=== PATIENT | male | born 1955 | race Caucasian/White ===

== ENCOUNTER 2018-10-20 22:24 | Inpatient (IN) | payer OTHER ==
[2018-10-20 22:50] LABS: PLATELET COUNT 184 10^3/uL (150-400)
[2018-10-20] MEDS ORDERED: ASPIRIN 325 MG TAB PO ONE (22:50)
[2018-10-20] MEDS ORDERED: NITROGLYCERIN 0.4 MG BTL SL ONE ×2 (22:50→23:25)
[2018-10-20] MEDS ORDERED: NS 500 ML IV ONE (22:50)
--- NOTE | 2018-10-20 22:55 | EDPHY ---
H & P Stated Complaint: Pressure in chest and pain in bilat arms started 30min SOUND EDITOR Time Seen by Provider: 10/20/18 22:33 HPI/ROS: HPI The patient presents with chest pain which began at about 9:45 p.m. Tonight while he was seated. Pain started slowly and got progressively worse, has been constant since. He describes it as a tight pressure-like sensation throughout his anterior chest which causes in aching in both of his arms and his teeth. He had the pain twice today earlier though it was milder and improved within 30 min. He had this same pain several months ago when he was taking indomethacin for gout. He stopped taking indomethacin in his pain improved so it was thought to be related to that. He does not have any associated shortness of breath, nausea, vomiting, dizziness , diaphoresis. The pain is not worse with exertion. He does not have any leg swelling. He is not sure or if he always is in atrial fibrillation or just occasionally. He is now followed by [facility]. He had an echocardiogram performed a few weeks ago and he reports that this is normal. He is followed by a workday manager and takes metoprolol, lisinopril, Pradaxa.. REVIEW OF SYSTEMS 10 systems were reviewed and negative with the exception of the elements mentioned in the history of present illness. PMHx: Hypertension, history of atrial fibrillation, gout, umbilical hernia Soc Hx: Here with his PHYSICAL General Appearance: Alert, no distress Eyes: Pupils equal and round no pallor or injection ENT, Mouth: Mucous membranes moist Respiratory: There are no retractions, lungs are clear to auscultation Cardiovascular: Irregularly irregular Gastrointestinal: Abdomen is soft and non-tender, no masses, bowel sounds normal Neurological: A&O, moves all extremities Skin: Warm and dry, no rashes Musculoskeletal: Neck is supple non tender Extremities: symmetrical, full range of motion Psychiatric: Patient is oriented X 3, there is no agitation Source: Patient Exam Limitations: No limitations - Personal History Current Tetanus/Diphtheria Vaccine: Yes Current Tetanus Diphtheria and Acellular Pertussis (TDAP): Yes - Medical/Surgical History Hx Asthma: No Hx Chronic Respiratory Disease: No Hx Diabetes: No Hx Cardiac Disease: Yes Hx Renal Disease: No Hx Cirrhosis: No Hx Alcoholism: No Hx HIV/AIDS: No Hx Splenectomy or Spleen Trauma: No Other PMH: CHF, hernia, afib - Social History Smoking Status: Never smoked Constitutional: Initial Vital Signs Temperature (C) 36.6 C 10/20/18 22:25 Heart Rate 84 10/20/18 22:25 Respiratory Rate 18 10/20/18 22:25 Blood Pressure 145/105 H 10/20/18 22:25 O2 Sat (%) 98 10/20/18 22:25 O2 Delivery Mode Room Air O2 (L/minute) 2 Allergies/Adverse Reactions: HAD PROBLEMS WITH STATINS Allergy (Uncoded 10/21/18 02:21) Home Medications: Medication Instructions Recorded B-12 10/20/18 Lisinopril 10/20/18 Proactin 10/20/18 Metoprolol Succinate 10/21/18 Pradaxa 10/21/18 Medical Decision Making - Diagnostics EKG Interpretation: EKG: Complete interpretation has been separately recorded in the [facility] archive. Summary impression: Atrial fibrillation with rate from 70-120, some bigeminy is present EKG 2. Complete interpretation has been separately recorded in the [facility] archive. Summary impression: Sub 1mm ST segment depressions in V2 and V3 Imaging Results: Imaging Impressions Chest X-Ray 10/20/18 22:37 Impression: Peribronchial thickening which can be seen with airways disease/ bronchitis or mild fluid overload. Imaging: I viewed and interpreted images myself Differential Diagnosis: This is a 62-year-old man with history of hypertension, atrial fibrillation who presents from home with 1 hr of chest pain which is tight and pressure-like throughout his chest, radiates to his arms, occurred at rest and does have any associated symptoms. He has no prior history of CAD though does not report any provocative testing recently. He did have an echo performed several weeks ago and reports that it was normal. Here, he is slightly hypertensive and mildly uncomfortable appearing. Plan for EKG, chest x-ray, troponin, pain control starting with aspirin and nitroglycerin. HEART score is 4. Pain improved with nitroglycerin and aspirin. Repeat EKG shows less PVCs and I do not see any ST segment change. 12:00 a.m.- Patient's pain is slightly worse here in the emergency department. He will need to be admitted and given his ongoing chest pain, I think he should stay here as he is not stable. I spoke with Dr. Vizcarra of [facility]. He is in agreement with admission to our hospital. 12:39 a.m.- I consulted with Dr. Gary, on-call workday manager, we reviewed the patient's presentation and EKG, he recommends heparin drip for the patient and pain control. We will keep the patient NPO and hold any Pradaxa. EKG showing small ST seg depressions in 2 leads, less than 1 mm. Patient's pain became slightly worse. Thus, repeat EKG and troponin were obtained. Repeat troponin is positive at 0.12. EKG was unchanged. Pt with presumed NSTEMI. We will start the patient on transdermal nitroglycerin and continue heparin, I have also ordered a dose of morphine. I have consulted with the hospitalist Dr. Downey and we will admit the patient to the PCU. 1:03 a.m.- Patient's pain not improved after receiving treatments with transdermal nitroglycerin, heparin. He has ongoing pain. I reconsulted Dr. Gary who will come into the emergency department to see the patient. 2:02 a.m.- Dr. Gary came to the emergency department to assess the patient. He plans to take him directly to the research laboratory technician. We have activated the research laboratory technician. Dr. Mckeon to take patient. Critical Care Time: CRITICAL CARE Critical care time spent by me, Dr. Zambrano, exclusively with this patient was 60 minutes, exclusive of PA time and exclusive of procedures. The organ system at risk was cardiac and I gave IV fluids, multiple medications for pain and blood pressure control, emergently transfer the patient to the cardiac catheterization lab to prevent worsening of the patients condition. - Data Points Laboratory Results: Laboratory Results 10/20/18 22:40 10/20/18 22:40 10/20/18 10/20/18 10/20/18 23:59 22:45 22:40 WBC RBC Hgb Hct MCV MCH MCHC RDW Plt Count MPV Neut % (Auto) Lymph % (Auto) [place] % (Auto) Eos % (Auto) Baso % (Auto) Nucleat RBC Rel Count Absolute Neuts (auto) Absolute Lymphs (auto) Absolute Monos (auto) Absolute Eos (auto) Absolute Basos (auto) Absolute Nucleated RBC Immature Gran % Immature Gran # PT 14.7 SEC SEC (12.0-15.0) INR 1.13 (0.83-1.16) APTT 37.0 SEC SEC (23.0-38.0) Sodium Potassium Chloride Carbon Dioxide Anion Gap BUN Creatinine Estimated GFR Glucose Calcium POC Troponin I 0.12 ng/mL H ng/mL 0.05 ng/mL ng/mL (0.00-0.08) (0.00-0.08) NT-Pro-B Natriuret Pep 10/20/18 10/20/18 22:40 22:40 WBC 9.47 10^3/uL 10^3/uL (3.80-9.50) RBC 5.76 10^6/uL 10^6/uL (4.40-6.38) Hgb 18.6 g/dL H g/dL (13.7-17.5) Hct 51.9 % H % (40.0-51.0) MCV 90.1 fL fL (81.5-99.8) MCH 32.3 pg pg (27.9-34.1) MCHC 35.8 g/dL g/dL (32.4-36.7) RDW 13.2 % % (11.5-15.2) Plt Count 184 10^3/uL 10^3/uL (150-400) MPV 10.0 fL fL (8.7-11.7) Neut % (Auto) 47.8 % % (39.3-74.2) Lymph % (Auto) 34.0 % % (15.0-45.0) [place] % (Auto) 12.0 % % (4.5-13.0) Eos % (Auto) 3.4 % % (0.6-7.6) Baso % (Auto) 1.5 % % (0.3-1.7) Nucleat RBC Rel Count 0.0 % % (0.0-0.2) Absolute Neuts (auto) 4.53 10^3/uL 10^3/uL (1.70-6.50) Absolute Lymphs (auto) 3.22 10^3/uL H 10^3/uL (1.00-3.00) Absolute Monos (auto) 1.14 10^3/uL H 10^3/uL (0.30-0.80) Absolute Eos (auto) 0.32 10^3/uL 10^3/uL (0.03-0.40) Absolute Basos (auto) 0.14 10^3/uL H 10^3/uL (0.02-0.10) Absolute Nucleated RBC 0.00 10^3/uL 10^3/uL (0-0.01) Immature Gran % 1.3 % H % (0.0-1.1) Immature Gran # 0.12 10^3/uL H 10^3/uL (0.00-0.10) PT INR APTT Sodium 138 mEq/L mEq/L (135-145) Potassium 4.1 mEq/L mEq/L (3.5-5.2) Chloride 106 mEq/L mEq/L (97-110) Carbon Dioxide 19 mEq/l L mEq/l (22-31) Anion Gap 13 mEq/L mEq/L (6-14) BUN 18 mg/dL mg/dL (7-23) Creatinine 1.1 mg/dL mg/dL (0.7-1.3) Estimated GFR > 60 Glucose 126 mg/dL H mg/dL (70-100) Calcium 9.4 mg/dL mg/dL (8.5-10.4) POC Troponin I NT-Pro-B Natriuret Pep 1260 pg/mL H pg/mL (0-125) Medications Given: Heparin Sodium (Porcine) (Heparin Injection) 0 unit IVP PRN PRN PRN Reason: re-Boluses required by protcol Stop: 04/19/19 00:05 Last Admin: 10/21/18 00:20 Dose: 4,000 units Heparin Sodium (Porcine) (Heparin 50 Units/Ml (Premix)) 500 mls @ 0 mls/hr IV CONT TARIK; Per Protocol PRN Reason: Protocol Stop: 04/19/19 00:14 Last Admin: 10/21/18 00:23 Dose: 500 mls Sodium Chloride (Ns) 1,000 mls @ 100 mls/hr IV CONT TARIK Stop: 10/21/18 13:59 Last Admin: 10/21/18 04:28 Dose: 1,000 mls Ondansetron HCl (Zofran) 2 - 4 mg IVP Q6HRS PRN PRN Reason: Nausea/Vomiting, Can't Take PO Stop: 04/19/19 03:57 Last Admin: 10/21/18 04:27 Dose: 4 mg Discontinued Medications Aspirin (Aspirin) 325 mg PO EDNOW ONE Stop: 10/20/18 22:51 Last Admin: 10/20/18 22:55 Dose: 325 mg Clopidogrel Bisulfate (Plavix) 600 mg PO ONCE ONE Stop: 10/21/18 03:59 Last Admin: 10/21/18 04:29 Dose: 600 mg Sodium Chloride (Ns) 500 mls @ 1,000 mls/hr IV EDNOW ONE PRN Reason: Protocol Stop: 10/20/18 23:19 Last Admin: 10/20/18 22:55 Dose: 500 mls Morphine Sulfate (Morphine) 4 mg IVP EDNOW ONE Stop: 10/20/18 23:26 Last Admin: 10/20/18 23:30 Dose: 4 mg Morphine Sulfate (Morphine) 4 mg IVP EDNOW ONE Stop: 10/21/18 00:27 Last Admin: 10/21/18 00:28 Dose: 4 mg Morphine Sulfate (Morphine) 2 mg IVP EDNOW ONE Stop: 10/21/18 01:12 Last Admin: 10/21/18 01:16 Dose: 2 mg Nitroglycerin (Nitrostat) 0.4 mg SL EDNOW ONE Stop: 10/20/18 22:51 Last Admin: 10/20/18 22:56 Dose: 0.4 mg Nitroglycerin (Nitrostat) 0.4 mg SL EDNOW ONE Stop: 10/20/18 23:26 Last Admin: 10/20/18 23:29 Dose: 0.4 mg Nitroglycerin (Nitro-Bid 2%) 1 inch TP ONCE ONE Stop: 10/21/18 00:34 Last Admin: 10/21/18 00:35 Dose: 1 inch Nitroglycerin (Nitro-Bid 2%) 1 inch TP EDNOW ONE Stop: 10/21/18 01:01 Last Admin: 10/21/18 04:30 Dose: Not Given Point of Care Test Results: Chemistry 10/20/18 10/20/18 23:59 22:45 POC Troponin I 0.12 ng/mL H ng/mL 0.05 ng/mL ng/mL (0.00-0.08) (0.00-0.08) Departure - Departure Disposition: To OP Cath/Surgery Clinical Impression: Acute coronary syndrome Chest pain Qualifiers: Chest pain type: unspecified Qualified Code(s): R07.9 - Chest pain, unspecified Condition: Critical
[2018-10-21] MEDS ORDERED: HEPARIN 10,000 UNIT/10 ML MDV (1,000 UNIT/ML) IVP PRN (00:06)
--- NOTE | 2018-10-21 00:13 | CPEKG ---
Test Reason : OPEN Blood Pressure : / mmHG Vent. Rate : 113 BPM Atrial Rate : 077 BPM P-R Int : 074 ms QRS Dur : 126 ms QT Int : 356 ms P-R-T Axes : 000 005 002 degrees QTc Int : 489 ms Atrial fibrillation Ventricular bigeminy Left bundle branch block Confirmed by Sai Melendrez ([id number]) on 10/21/2018 12:13:04 AM Referred By: Confirmed By:Sai Melendrez
[2018-10-21] MEDS ORDERED: HEPARIN/DEXTROSE 500 ML IV SCH (00:15)
[2018-10-21] MEDS ORDERED: NITROGLYCERIN 2% 1 GM PACKET ONE (00:31)
[2018-10-21] MEDS ORDERED: NITROGLYCERIN 2% 1 GM PACKET TP ONE ×2 (00:33→01:00)
[2018-10-21] MEDS ORDERED: ACETAMINOPHEN 325 MG TAB PO PRN (01:45)
[2018-10-21] MEDS ORDERED: NITROGLYCERIN 0.4 MG BTL SL PRN (01:45)
--- NOTE | 2018-10-21 02:01 | PDGENHP ---
History and Physical - Chief Complaint chest pain - History of Present Illness 62yo M with atrial fibrillation on pradaxa, obesity, htn, hld presents with chest pressure. Noticed briefly this morning while taking out the trash and subsided after a few minutes. Then began again abruptly around 10pm this evening. Left sided with radiation to both arms. No associated shortness of breath, diaphoresis or nausea. Not positional or pleuritic. Had similar episode about a month ago that occurred at rest and resolved after a half hour. This episode persisted prompting him to come to the ED. His initial ECG showed ST depressions in anterior leads. Initial POC troponin was negative but repeat was slightly elevated at 0.12. His chest pain was not relieved with sublingual nitro , IV morphine, or nitro paste. Cardiology was consulted and he is being taken to the process laboratory specialist by Dr Mckeon for coronary angiography. Of note, he previously saw [facility] back in 2014. He then transferred care to [facility] but hasn't regularly seen a corporate planning manager there. He reports having a TTE about a month ago that was "normal." History Information - Allergies/Home Medication List Allergies/Adverse Reactions: HAD PROBLEMS WITH STATINS Allergy (Uncoded 10/21/18 02:21) Home Medications: B-12 10/20/18 [Last Taken Unknown] Lisinopril 10/20/18 [Last Taken Unknown] Proactin 10/20/18 [Last Taken Unknown] Metoprolol Succinate 10/21/18 [Last Taken Unknown] Pradaxa 10/21/18 [Last Taken Unknown] I have personally reviewed and updated: family history, medical history, social history, surgical history - Past Medical History Additional medical history: chronic atrial fibrillation on OAC, HTN, HLD, obesity, cardiomyopathy now with normalized LVEF (thought 2/2 HTN vs tachy- mediated), mitral regurgitation, gout - Surgical History Reports: no pertinent surgical hx - Social History Smoking Status: Never smoked Alcohol Use: None Drug Use: None Additional social history: , lives with . He is a Yarsanism and would like to avoid blood transfusions Review of Systems Review of Systems: ROS: 10pt was reviewed & negative except for what was stated in HPI & below Physical Exam Physical Exam: Temp Pulse Resp BP Pulse Ox 36.6 C 110 H 16 150/87 H 95 10/20/18 22:25 10/21/18 01:46 10/21/18 01:46 10/21/18 01:46 10/21/18 01:46 O2 (L/minute) 2 Constitutional: obese, uncomfortable Eyes: PERRL, anicteric sclera, EOMI Ears, Nose, Mouth, Throat: moist mucous membranes, hearing normal, ears appear normal, no oral mucosal ulcers Cardiovascular: systolic murmur, irregularly irregular, No JVD, No edema Respiratory: no respiratory distress, no rales or rhonchi, clear to auscultation Gastrointestinal: normoactive bowel sounds, soft, non-tender abdomen, no palpable masses Genitourinary: no bladder fullness, no bladder tenderness Skin: warm, no rashes or abrasions, no fluctuance, no induration, other ( changes in BLE c/w chronic venous stasis), No mottled Musculoskeletal: full muscle strength, no muscle tenderness, normal joint ROM, no joint effusions Neurologic: AAOx3 Psychiatric: interacting appropriately, not anxious, not encephalopathic, thought process linear Lab Data & Imaging Review 10/21/18 05:00 10/21/18 05:00 WBC 9.47 10^3/uL (3.80-9.50) 10/20/18 22:40 RBC 5.76 10^6/uL (4.40-6.38) 10/20/18 22:40 Hgb 18.6 g/dL (13.7-17.5) H 10/20/18 22:40 Hct 51.9 % (40.0-51.0) H 10/20/18 22:40 MCV 90.1 fL (81.5-99.8) 10/20/18 22:40 MCH 32.3 pg (27.9-34.1) 10/20/18 22:40 MCHC 35.8 g/dL (32.4-36.7) 10/20/18 22:40 RDW 13.2 % (11.5-15.2) 10/20/18 22:40 Plt Count 184 10^3/uL (150-400) 10/20/18 22:40 MPV 10.0 fL (8.7-11.7) 10/20/18 22:40 Neut % (Auto) 47.8 % (39.3-74.2) 10/20/18 22:40 Lymph % (Auto) 34.0 % (15.0-45.0) 10/20/18 22:40 [place] % (Auto) 12.0 % (4.5-13.0) 10/20/18 22:40 Eos % (Auto) 3.4 % (0.6-7.6) 10/20/18 22:40 Baso % (Auto) 1.5 % (0.3-1.7) 10/20/18 22:40 Nucleat RBC Rel Count 0.0 % (0.0-0.2) 10/20/18 22:40 Absolute Neuts (auto) 4.53 10^3/uL (1.70-6.50) 10/20/18 22:40 Absolute Lymphs (auto) 3.22 10^3/uL (1.00-3.00) H 10/20/18 22:40 Absolute Monos (auto) 1.14 10^3/uL (0.30-0.80) H 10/20/18 22:40 Absolute Eos (auto) 0.32 10^3/uL (0.03-0.40) 10/20/18 22:40 Absolute Basos (auto) 0.14 10^3/uL (0.02-0.10) H 10/20/18 22:40 Absolute Nucleated RBC 0.00 10^3/uL (0-0.01) 10/20/18 22:40 Immature Gran % 1.3 % (0.0-1.1) H 10/20/18 22:40 Immature Gran # 0.12 10^3/uL (0.00-0.10) H 10/20/18 22:40 Sodium 138 mEq/L (135-145) 10/20/18 22:40 Potassium 4.1 mEq/L (3.5-5.2) 10/20/18 22:40 Chloride 106 mEq/L (97-110) 10/20/18 22:40 Carbon Dioxide 19 mEq/l (22-31) L 10/20/18 22:40 Anion Gap 13 mEq/L (6-14) 10/20/18 22:40 BUN 18 mg/dL (7-23) 10/20/18 22:40 Creatinine 1.1 mg/dL (0.7-1.3) 10/20/18 22:40 Estimated GFR > 60 10/20/18 22:40 Glucose 126 mg/dL (70-100) H 10/20/18 22:40 Calcium 9.4 mg/dL (8.5-10.4) 10/20/18 22:40 POC Troponin I 0.12 ng/mL (0.00-0.08) H 10/20/18 23:59 NT-Pro-B Natriuret Pep 1260 pg/mL (0-125) H 10/20/18 22:40 Visualized and Interpreted Chest x-ray results: Yes Visualized and Interpreted imaging results: Yes Interpretation: CXR: no infiltrate or effusion, normal heart size Visualized and Interpreted EKG results: Yes EKG additional interpertation: ECG: atrial fibrillation with controlled rates, ST depression in V2-V3 (no significant dynamic change) Assessment & Plan Assessment: 62yo M with atrial fibrillation on pradaxa and several cardiovascular risk factors presents with chest pain concerning for ACS. Plan: 1. Chest pain concerning for unstable angina: Pain unrelieved with nitrates, morphine. Troponin minimally elevated, but rising. Abnormal ECG. - Cardiology consulted (d/w Dr Gary), plan for process laboratory specialist tonight for coronary angiography - Continue heparin gtt - Plan for post-cath echo 2. Atrial fibrillation: Rate controlled on admit. [id number] at least 3, on pradaxa. - Resume home metoprolol after cath pending clinical stability and med rec - Holding pradaxa with systemic heparin. He is a Yarsanism and does not want blood products. 3. Polycythemia: Previously normal hematocrit. ? 2/2 MADELINE/chronic hypoxia. Unlikely to be severe enough to lead to thrombosis. - Recheck in AM 4. HTN: Home meds (BB, ACEi) after med rec. 5. HLD: Start on statin if has CAD. 6. H/o cardiomyopathy: [place] to be related to HTN vs afib. LVEF normalized on prior echo. BNP slightly up but appears euvolemic. VTE ppx: therapeutic anticoagulation Code: full Diet: NPO for procedure Dispo: Admit as inpatient
--- NOTE | 2018-10-21 02:08 | SOAPPROG ---
SOAP Progress Note Assessment/Plan: Assessment: Cardiology consult performed and dictated. 62 y/o man Jehovah Witness with chronic afib, HTN, gout and chronic obesity with episode of concerning rest chest pressure a month ago x 30 minutes and today started having 10/10 chest pressure at 10pm. Came to ER and initial ecg in afib with 1.5mm ST depression anterior leads. Despite IV morphine and SL ntg and nitropaste, CP still 8/10 with nausea and shortness of breath. I am concerned he is having NSTEMI with probable obstructive CAD probably in LAD distribution. He declines any blood products and is aware of the risk of bleeding, [place], CVA or with cath. PLAN: 1)proceed with cardiac cath and coronary angiography today and probable PCI 2)reversal agent for Pradaxa available if needed but would not give not in setting of possible coronary artery plaque rupture and thrombus. 3)more recs after cardiac cath done. 10/21/18 02:03 Objective: Vital Signs Temp Pulse Resp BP Pulse Ox 36.6 C 110 H 16 150/87 H 95 10/20/18 22:25 10/21/18 01:46 10/21/18 01:46 10/21/18 01:46 10/21/18 01:46 ICD10 Worksheet Patient Problems: Problems Problem Status Onset Acute coronary syndrome Acute Chest pain Acute
[2018-10-21] MEDS ORDERED: MIDAZOLAM 2 MG/2 ML VIAL ONE (02:37)
[2018-10-21] MEDS ORDERED: fentaNYL 100 MCG/2 ML INJ ONE (02:37)
[2018-10-21] MEDS ORDERED: VERAPAMIL 5 MG/2 ML VIAL ONE (02:37)
[2018-10-21] MEDS ORDERED: HEPARIN 10,000 UNIT/10 ML MDV (1,000 UNIT/ML) ONE (02:37)
[2018-10-21] MEDS ORDERED: LIDOCAINE 1% 300 MG/30 ML SDV ONE (02:37)
[2018-10-21] MEDS ORDERED: IOPAMIDOL (ISOVUE-370) 150 ML BTL IV ONE (02:37)
[2018-10-21 02:42] LABS: INR 1.13 (0.83-1.16); PROTIME(PATIENT) 14.7 SEC (12.0-15.0)
[2018-10-21] MEDS ORDERED: CLOPIDOGREL BISULFATE 75 MG TAB ONE (03:54)
[2018-10-21] MEDS ORDERED: LORazepam 2 MG/ML INJ IVP PRN (03:58)
[2018-10-21] MEDS ORDERED: TEMAZEPAM 15 MG CAP PO PRN (03:58)
[2018-10-21] MEDS ORDERED: ONDANSETRON 4 MG/2 ML VIAL IVP PRN (03:58)
[2018-10-21] MEDS ORDERED: CLOPIDOGREL BISULFATE 75 MG TAB PO ONE (03:58)
[2018-10-21] MEDS ORDERED: ATROPINE SULFATE 1 MG/10 ML SYR IVP PRN (03:58)
[2018-10-21] MEDS ORDERED: NS 1,000 ML IV SCH (04:00)
--- NOTE | 2018-10-21 05:04 | GHP ---
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 He has a history of permanent atrial fibrillation on Pradaxa. Yesterday morning, when taking out the trash, early Sunday morning, he developed chest pressure with radiation into his arms bilaterally in his upper and medial aspect of his arm. The pain subsided and did not return until the evening. He sat down at his desk at his home office and felt intense 10/10 chest discomfort, pressure, and tightness that radiated into his arms bilaterally and was associated with nausea and shortness of breath. It did not change with body position or with inspiration. He ultimately asked his to bring him to the emergency department for further evaluation. At the time of my evaluation, the patient's pain has been partially relieved by intravenous heparin, IV morphine and nitroglycerin paste as well as sublingual nitroglycerin. He states his discomfort is about 2/10 in severity at the present time. ALLERGIES: He is not known to be allergic to medications, but had an adverse reaction to statin medications in the past. HOME MEDICATIONS: Include B12, lisinopril, metoprolol succinate, Pradaxa 150 p.o. b.i.d. Does not know the doses of his other medications. . He also takes p.r.n. prednison for gout PAST MEDICAL HISTORY: Significant for permanent atrial fibrillation on oral anticoagulation therapy. He has hypertension, dyslipidemia, obesity, and a history of a cardiomyopathy in the past, which was likely related to a tachy- induced myopathy versus poorly controlled hypertension. He has had a history of mitral regurgitation, gout, and back pain. He has a history of obstructive sleep apnea which is severe, which is being treated actively with CPAP. SURGICAL HISTORY: Pertinent for prior back surgery. SOCIAL HISTORY: He has never smoked. His alcohol use is pertinent for an occasional beer. He does not use illicit drugs. He is , as I said a partially retired general dentist. He is a Jainism by liz and would like to avoid blood transfusion even if it were performed to save his life. REVIEW OF SYSTEMS: A 10-point review of systems was negative except for as stated in the HPI. PHYSICAL EXAMINATION: GENERAL: The patient appears uncomfortable and obese. He is semi-recumbent on the emergency department stretcher and appears mildly diaphoretic. VITAL SIGNS: His blood pressure is 150/90, pulse ox was 92 on room air, respirations 16 and unlabored. His pulse ranged between 100 and 130 and was irregularly irregular consistent with his diagnosis of atrial fibrillation. Temperature 36.6 Celsius. HEENT: His eyes revealed that his pupils were equal, round and reactive to light with anicteric sclerae. Moist mucous membranes. He appears to be able to hear normally. NECK: Reveals no JVD or carotid bruits. HEART: Reveals normal S1 and S2 with an irregularly irregular murmur. He has an S3 gallop sound and a faint grade 1/6 systolic murmur. LUNGS: He has no respiratory distress. He has no rales or rhonchi. His lungs are clear anteriorly. ABDOMEN: Obese with positive bowel sounds. It is nondistended and nontender. EXTREMITIES: Warm, dry, and well perfused without significant peripheral edema. He has chronic venous stasis changes. LABORATORY STUDIES: Reveal a white count of 9.47, platelets 184, H and H elevated at 18.6 and 51.9. Sodium 138, potassium 4.1, chloride 106, bicarb is 19, BUN and creatinine are 18 and 1.1 with a glucose of 126. His EKG reveals atrial fibrillation with ST-segment depression, which is flat and horizontal in V1 and V2 with an early R-wave pattern which is consistent with a posterior injury pattern. These changes are persistent and different compared to an EKG that was previously obtained which showed atrial fibrillation with a repolarization abnormality. The patient has a history of prior cardiomyopathy and heart failure related to a reduced ejection fraction thought to be secondary to poorly controlled hypertension versus intermittent tachy-induced myopathy from atrial fibrillation. The patient now has an abnormal EKG and a point of care troponin has risen to 0.12 from a negative value initially. His EKG changes are suggestive of a possible left circumflex occlusion posteriorly, and for that reason, he should be taken urgently to the catheterization laboratory for further evaluation and management. His atrial fibrillation is more of a chronic issue and may be contributing to a cardiomyopathy if that is identified at the time of left heart catheterization and subsequent adequate echocardiogram. His hypertension will be controlled with beta blockers and lisinopril and adjusted post catheterization and during this hospital stay. He has polycythemia with a previously normal hematocrit, which may be secondary to his sleep apnea. His dyslipidemia should be started on statin therapy, especially if coronary artery disease is identified and that should be continued and only stopped if he has a true allergic reaction to those medications. I have explained the risks, benefits, and alternatives of cardiac catheterization to the patient including the additional risk of bleeding without the ability to transfuse him in the event that he would have a life-threatening bleeding problem. In spite of those warnings, the patient and his have agreed that the most appropriate course of action is for the patient to go emergently to the catheterization laboratory for definitive angiography and possible stent implantation if that is possible. Copy requested to: Kyle Levin MD /[id number]/MODL MTDD
[2018-10-21 05:18] LABS: INR 1.28 (0.83-1.16); PROTIME(PATIENT) 16.2 SEC (12.0-15.0)
[2018-10-21 05:23] LABS: PLATELET COUNT 156 10^3/uL (150-400)
[2018-10-21] MEDS ORDERED: PROTOCOL MAGNESIUM 1 DOSE IV PRN (06:20)
[2018-10-21] MEDS ORDERED: PROTOCOL POTASSIUM 1 DOSE MISC PRN (06:20)
[2018-10-21] MEDS ORDERED: MAGNESIUM SULF 1 GM/DEXTROSE 100 ML IV ONE (07:32)
--- NOTE | 2018-10-21 07:55 | PDMN ---
Medical Necessity Medical necessity: MCG M230 SD- 2 days NSTEMi - EKG changes show ST depression in V2-V3 with early R wave pattern. pt taken emergently to clam bed laborer ,
[2018-10-21] MEDS: ASPIRIN EC 325 MG TAB PO SCH (08:30)
--- NOTE | 2018-10-21 11:17 | CPEKG ---
Test Reason : OPEN Blood Pressure : / mmHG Vent. Rate : 078 BPM Atrial Rate : 105 BPM P-R Int : 185 ms QRS Dur : 089 ms QT Int : 394 ms P-R-T Axes : 104 044 037 degrees QTc Int : 449 ms Atrial fibrillation Confirmed by Clay Camejo ([id number]) on 10/21/2018 11:16:57 AM Referred By: Confirmed By:Clay Camejo
--- NOTE | 2018-10-21 12:02 | ASMTCASEMG ---
Living Arrangements What is your living Answers: With Spouse arrangement? Who do you live with? Type Of Residence What kind of residence do Answers: House you live in? Discharge Plan Comments Coordination Status Comments Notes: Patient is a 62yo male who is Sikhism and prefers no blood transfusions. Patient comes to [facility] with AFIB and rapid ventricular response. He has been admitted for acute coronary syndrome and chest pain.Patient taken emergently to the mushroom laborer. No therapies ordered at this time. D/C plan TBD. CM will follow. Date Signed: 10/21/2018 12:01 PM Electronically Signed By:Kathy Evangelista LCSW
--- NOTE | 2018-10-21 12:35 | HOSPPROG ---
Hospitalist Progress Note Assessment/Plan: 62-year-old with a history of AFib on Pradaxa is admitted with chest pressure associated with taking out the trash. It reoccurred the evening prior to admission. He came into the emergency department and EKG noted ST depression in the anterior leads. With a slightly elevated troponin cardiology was consulted and he was taken to the manager labor delivery by Dr. Mckeon requiring stents. He is currently on Plavix and aspirin. # acute coronary syndrome status post stent placement. Currently on Plavix and aspirin after stent placement. Defer further recommendations to cardiology patient currently comfortable without chest pain * Continue Plavix and aspirin * Patient pain-free no longer requiring IV Morphine or nitroglycerin * Follow-up per Cardiology * Has an undocumented allergy to statins # atrial fibrillation currently on Pradaxa and metoprolol. Will resume the Pradaxa per Cardiology # hypertension, on lisinopril previously # Jehovah Witness, patient declines any blood transfusions if needed Patient with acute coronary syndrome status post stent early this morning. Will need additional 24 hr stay to monitor for arrhythmias as he is at high risk Subjective: Patient new to dc and chart reviewed. Currently having no chest pain Objective: Vital Signs Temp Pulse Resp BP Pulse Ox 36.6 C 90 15 143/107 H 97 10/21/18 11:55 10/21/18 11:55 10/21/18 11:55 10/21/18 11:55 10/21/18 11:55 Laboratory Results 10/21/18 05:00 10/21/18 05:00 10/20/18 10/21/18 10/22/18 05:59 05:59 05:59 Intake Total 1126 Output Total 1050 Balance 1126 -1050 PT 16.2 SEC (12.0-15.0) H 10/21/18 05:00 INR 1.28 (0.83-1.16) H 10/21/18 05:00 - Physical Exam Constitutional: no apparent distress Eyes: PERRL Ears, Nose, Mouth, Throat: moist mucous membranes, hearing normal Cardiovascular: regular rate and rhythym Respiratory: no respiratory distress, clear to auscultation Gastrointestinal: normoactive bowel sounds, soft, non-tender abdomen Genitourinary: no bladder fullness Skin: warm, normal color Musculoskeletal: full muscle strength Neurologic: AAOx3 Psychiatric: interacting appropriately, not anxious ICD10 Worksheet Patient Problems: Problems Problem Status Onset Chest pain Acute Acute coronary syndrome Acute
--- NOTE | 2018-10-21 13:02 | GCON ---
CARDIOLOGY CONSULTATION DATE OF CONSULTATION: 10/21/2018 REASON FOR CONSULTATION: Evaluate gentleman with ongoing chest pressure and ischemic EKG and elevate d troponin. HISTORY OF PRESENT ILLNESS: The patient is a 62-year-old gentleman with a history of chronic atrial fibrillation on p.o. Pradaxa, previous malignant hypertension and heart failure diagnosed in 1999, go ut and chronic morbid obesity. For the last 4 years, he has been in the [facility] and reports he had an echo 2 months ago, which he was told was okay. He has not had a stress test in over 5 years. He is relatively inactive. A month ago he had an episode of chest pressure at rest lasting about 3 0 minutes. He can walk his dogs for about 1 block before becoming short of breath but not having deven st pain. Tonight at 10 o'clock, approximately 3.5 hours ago, he developed 10/10 chest pressure assoc iated with shortness of breath and some nausea. He came to the emergency room and his initial EKG de monstrated atrial fibrillation with 1.[address] depression in the anterior leads. Despite IV morphi ne and sublingual nitroglycerin and nitroglycerin paste he is still having 8/10 chest pain. He denie s GI bleed symptoms such as hematemesis, melena, or bright red blood per rectum. He has no back pain or syncope. PAST MEDICAL HISTORY: Chronic atrial fibrillation, hypertension, gout, chronic obesity and nonspecif ic heart failure diagnosed 18 years ago. PAST SURGICAL HISTORY: Umbilical hernia repair. HOME MEDICATIONS: Pradaxa and Toprol. ALLERGIES: No known drug allergies. SOCIAL HISTORY: Patient is . He does not smoke cigarettes. He has 2-3 beers per day. FAMILY HISTORY: He is adopted. REVIEW OF SYSTEMS: The patient reports no recent fevers, chills, or hemoptysis. Rest of 10-point re view of systems is negative. PHYSICAL EXAM: VITAL SIGNS: Moderately obese, afebrile, pulse 112 and irregular irregular, blood pr essure 148/104, respirations 22, weight 108.9 kg. GENERAL: A moderately obese gentleman reporting 8 /10 chest pain with no respiratory distress. EYES: Pupils equal and reactive to light. ENT: Oral mucosa with no cyanosis. NECK: Jugular venous pressure to 8 cm. Carotid pulses 2+ bilaterally with no obvious bruits. No nuchal rigidity. LUNGS: Clear to auscultation bilaterally without rales, rh onchi or wheezing. HEART: Normal PMI. Irregularly irregular rhythm with 1/6 nonradiating systolic murmur and positive S4 but no S3. ABDOMEN: Obese. No guarding or rebound. No obvious ascites. EX TREMITIES: 2+ peripheral pulses including femoral and pedal pulses. No edema noted. MUSCULOSKELETA L: No scoliosis. NEURO: Normal affect and mood. SKIN: No bleeding or cyanosis. DIAGNOSTIC STUDIESA: EKG: Atrial fibrillation with ST depression in V2 and V3. LABS: White count 9.5, hematocrit 52, platelets 184,000, MCV 90. Sodium 138, potassium 4.1, chlorid e 106, bicarb 19, BUN 18, creatinine 1.1, glucose 126. Troponin 0.12. NT proBNP level 1260. IMPRESSION: A 62-year-old gentleman with chronic atrial fibrillation, malignant hypertension and non specific congestive heart failure in the past with continuing chest pain consistent with non-Q-wave m yocardial infarction. I am concerned he has obstructive coronary artery disease probably in the left anterior descending distribution. PLAN: 1. Advised that we take him to the orthodontic laboratory technician tonight for coronary angiography and hopeful stenting. He is a [employer] and reiterates that he wants no blood products. For now, I do not think we need to use the Pradaxa reversing agent, but if he has lots of. erin-procedure bleeding could use. 2. More recommendations once heart catheterization done. /[id number]/MODL
[2018-10-21] MEDS: METOPROLOL SUCCINATE XR 50 MG TAB PO SCH (14:28)
--- NOTE | 2018-10-21 17:27 | ECHO ---
[email or web address] [address] [address] Main: [phone] Fax: Transthoracic Echocardiogram Name: RICHARD FELICIANO MR#: [id number] Study Date: 10/21/2018 Study Time: 09:38 AM Date of : 1955 Age: 62 year(s) Height: 182.9 cm (72 in.) Weight: 108.86 kg (240 lb.) BSA: 2.3 m2 Gender: Male Examination: Echo Indication: Post STEMI/CO Image Quality: Contrast: Requested by: Ziggy Downey BP: 127 mmHg/96 mmHg Heart Rate: Rhythm: Indication: Post STEMI/CO Procedure Staff Stock Patcher: Edith Espino RDCS Reading Physician: Vikash Mckeon MD Requesting Provider: Measurements: Chambers Valvular Assessment AV/MV Valvular Assessment TV/PV Normal Normal Normal Name Value Range Name Value Range Name Value Range Ao Fabienne (MM): 3.5 cm (2.2 cm-3.7 AV Vmax: 1.10 m/s (1 m/s-1.7 PV Vmax: 0.74 m/s (0.6 m/s-0.9 cm) m/s) m/s) IVSd (2D): 1.3 cm (0.6 cm-1.1 AV maxP mmHg ( - ) PV PGmax: 2 mmHg ( - ) cm) LVOT Vmax: 0.57 m/s (0.7 m/s-1.1 LVDd (2D): 5.3 cm (4.2 cm-5.9 m/s) cm) MV E Vmax: 1.05 m/s ( - ) LVDs (2D): 4.3 cm (2.1 cm-4 MV meanP mmHg ( - ) cm) LVPWd (2D): 1.3 cm (0.6 cm-1 cm) LVEF (BP): 34 % (>=55 %) EF Range: 40-45 % RVDd(2D): 4.2 cm (1.9 cm-3.8 cmmm) Continued Measurements: Chambers Valvular Assessment AV/MV Name Value Name Value LADs Lon.0 cm MV Annulus: 3.1 cm LA Area: 31.3 cm2 MV E' Septal: 0.10 m/s LA Volume: 127 ml MV E/E' Septal: 11.00 LA Volume Index: 55.2 ml/m2 MV E/E' Lateral: 10.10 MV VTI: 16.30 cm MR Vena Contracta: 0.6 cm MR ERO: 0.140 cm2 Patient: RICHARD FELICIANO Study Date: 10/21/2018 Page 1 of 2 09:38 AM MR PISA radius: 6 mm MR Reg. Volume: 21 ml MR Reg. Fraction: 17 % Findings: Left Ventricle: Normal size left ventricle. No LV hypertrophy. The ejection fraction is estimated to be 40-45 %. The rhythm is atrial fibrillation. There is LV dysschrony. There There is basilar to mid inferolateral and inferoseptal hypokinesis.. Right Ventricle: Normal size right ventricle. Normal RV function. Left Atrium: The left atrium is moderately to severely dilated. Right Atrium: The right atrium is mildly dilated. Mitral Valve: Mild mitral valve leaflet calcification is present. Mild mitral valve regurgitation is present. Aortic Valve: The aortic valve is tri-leaflet. Minimal aortic cusp calcification is noted. There is no aortic valve regurgitation. Tricuspid Valve: The tricuspid valve appears normal. There is no significant tricuspid valve regurgitation. Pulmonic Valve: The pulmonic valve is normal in appearance and function. Aorta: The aorta is normal. Pericardium: No pericardial effusion. Exam Comments: BH THIS IS THE POST STEMI FROM LAST NIGHT, HIS EF ESTIMATE FROM LAST NIGHT WAS 20% I THINK HE IS NEAR 40-45% NOW. WHAT ARE YOUR THOUGHTS EDITH. (No Signature Object) Patient: RICHARD FELICIANO Study Date: 10/21/2018 Page 2 of 2 09:38 AM [id number]
[2018-10-22] MEDS: ASPIRIN EC 325 MG TAB PO SCH (08:51)
[2018-10-22] MEDS: METOPROLOL SUCCINATE XR 50 MG TAB PO SCH (08:54)
[2018-10-22 08:58] VITALS: BP 123/81
[2018-10-22] MEDS ORDERED: ROSUVASTATIN CALCIUM 10 MG TAB PO SCH (09:00)
[2018-10-22] MEDS ORDERED: DABIGATRAN ETEXILATE MESYL 150 MG CAP PO SCH (09:00)
[2018-10-22] MEDS ORDERED: CLOPIDOGREL BISULFATE 75 MG TAB PO SCH (09:00)
[2018-10-22] MEDS ORDERED: LISINOPRIL 40 MG TAB PO SCH (09:00)
[2018-10-22] MEDS ORDERED: MAGNESIUM SULF 1 GM/DEXTROSE 100 ML IV ONE (09:28)
--- NOTE | 2018-10-22 15:11 | CPIP ---
DATE OF PROCEDURE: 10/21/2018 PROCEDURE PERFORMED: 1. Selective coronary angiography. 2. Left heart catheterization. 3. Left ventriculogram. 4. Percutaneous transluminal coronary angioplasty and stent implantation of an occluded left circumf sharla vessel with a 4.0 x 20 Synergy drug-eluting stent to the proximal left circumflex, again for a co mplete occlusion. 5. Percutaneous transluminal coronary angioplasty and stent placement of an obtuse marginal branch d ownstream from that complete occlusion with a 275 x 12 Synergy drug-eluting stent implanted for a 70% stenosis of that branch vessel. 6. TR band arteriotomy repair. This was a left radial approach. COMPLICATIONS: None. INDICATIONS: A subendocardial myocardial infarction with evidence of troponin elevation and ST-segme nt changes suggestive of ischemia with early R-wave, which is also consistent with a posterior injury pattern. PROCEDURE IN DETAIL: After informed consent was obtained, n.p.o. status was confirmed, the region of the left wrist was cleaned, prepped, and draped in sterile fashion. A 6-Chinese sheath was placed to the left radial artery with single anterior puncture of the vessel using a micropuncture set. The p atient underwent diagnostic angiography with the use of 5-Chinese JR4 and JL4 coronary catheters, as w ell as a 5-Chinese pigtail catheter. Standard wire exchange technique was utilized for all catheter e xchanges. The right coronary artery was injected, and noted to be totally occluded in its proximal segment just after the conus branch. 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 The vessel was originally codominant as it wa s later seen on left-sided injections a nice collateral from the LAD diagonal circulation. There was a collateral to the distal PDA which fills the distal right coronary artery retrograde. Injection of the left coronary system reveals a large left main, 7 to 8 mm in size with evidence of l uminal irregularity consistent with underlying atherosclerosis. No flow-limiting obstruction of the left main was identified. The left main trifurcated into an LAD, circumflex and ramus system. The r amus vessel is large, 2.5 mm in size and is free of flow-limiting obstruction. The LAD is a large ve ssel, approximately 4 mm in size, proximally with a large principal diagonal vessel and flows to the anterior apex without flow-limiting obstruction. Again, luminal irregularity consistent with underly ing atherosclerosis is present. There is a well-developed collateral from the distal LAD diagonal ci rculation which provides flow in a retrograde fashion to a relatively large 2-1/2 mm PDA vessel which originally arose from the right coronary. The left circumflex is a large vessel, 4 mm in size and i s totally occluded with DOMENIC 0 flow on initial injection. The patient underwent left ventriculogram in the MARTINEZ projection, demonstrating depressed left ventricular systolic function. Ejection fraction was estimated at 20-25 percent with 1+ mitral regurgitation on pressurized injection and with the pr esence of the catheter in the left ventricle. There was no evidence of delonte aneurysm of the thoraci c aorta and no evidence of obvious dissection. We turned our attention to the occluded left circumflex vessel. A 375 EBU guiding Cordis catheter was used for guide catheter support. A 0.014 Intuition wire was advanced across the lesion in question under direct fluoroscopic and angiographic guidance. The vessel was ballooned open with a 2.5 x 12 E merge balloon, documenting improvement in flow and a bifurcating circumflex obtuse marginal system. After the vessel was opened, it was noted that the left circumflex was a codominant vessel with an ad ditional codominant PDA vessel distally. The proximal vessel was then secondarily stented with a 4.0 x 20 Synergy drug-eluting stent to the level of the bifurcation of the circumflex proper and the obt use marginal branch. The stent was post dilated at a max pressure of 14 atmospheres with the stent d eliSeeSpacey system. After stent implantation, there was 0% residual stenosis and DOMENIC-3 flow to the dist al vessel. I noted that the circumflex obtuse marginal branch downstream from the vessel was 70% occ luded with a hazy appearance consistent with possible entrapped thrombus and therefore, we performed stent implantation at that location with a 275 x 12 Synergy drug-eluting stent with 0% residual steno sis status post PTCA and stent placement. There was excellent angiographic results with 0% residual stenosis in the proximal left circumflex and in the circumflex obtuse marginal branch and excellent T IMI-3 flow to the distal vessel was noted throughout. The patient tolerated the procedure well without immediate complications and returned to the ICU in s erious but stable condition, where a stat postoperative EKG will be obtained. The patient will need to be evaluated for his known dyslipidemia which is currently not being treated because of statin int olerance. That issue will again need to be addressed as this appears to be an adverse drug reaction as opposed to a true allergy. He also needs to be assessed for the presence of diabetes with a fasti ng blood sugar and hemoglobin A1c and will ultimately benefit from treatment of his diabetes if that is identified on the basis of testing. FINAL IMPRESSION: Successful acute infarct angioplasty and stent implantation for posterior myocardi al infarction. Copy requested to: Claudio Leone [place] /[id number]/MODL
--- NOTE | 2018-10-22 15:16 | GDS ---
ADMISSION DIAGNOSES: 1. Subendocardial myocardial infarction. 2. Hypertension. 3. Permanent atrial fibrillation. 4. Glucose intolerance. 5. Dyslipidemia. DISCHARGE DIAGNOSES: 1. Status post posterior myocardial infarction with occlusion of left circumflex, treated with acute infarct angioplasty and stent implantation. 2. Permanent atrial fibrillation. 3. Hypertension. 4. Diabetes mellitus. 5. Dyslipidemia. HISTORY OF PRESENT ILLNESS: For detailed history of present illness, please see the recently dictate d Julissa and P. Briefly, this is a patient who is overweight and has sleep apnea as well as multiple othe r risk factors for acute coronary syndrome who had an index episode of chest discomfort lasting appro ximately 30 minutes 3-4 weeks ago. He again had an episode of discomfort on Sunday morning, 10/20/19 19, when taking out the trash. The pain subsided after he was no longer active and then when he sat down to do some work at his desk, had sudden onset of 10/10 chest discomfort that remained in the 8-1 0 out of 10 level until he presented to the emergency department here at [facility]. A n EKG was obtained demonstrating ST-segment depression and early R-wave transition, which may be cons istent with a posterior injury pattern. His initial troponin was negative, but bumped to 0.12. I was emergently consulted in the manufacturing planner hours of 10/21/2018. HOSPITAL COURSE: The patient was taken emergently to the cardiac catheterization laboratory and unde rwent successful acute infarct angioplasty with PTCA and stent placement of the occluded left circumf sharla and obtuse marginal branch. Please see the cardiac catheterization procedure note for details of that issue. The patient tolerated the procedure well and was admitted to the hospital. His cardiac situation was carefully monitored. An echocardiogram demonstrated a better ejection fraction than i nitially suspected on the basis of LV gram which did inadequately fill his left ventricle. He was ul timately found to have an ejection fraction of 40-45 percent with basal inferior wall hypokinesis in the posterior region and inferior wall consistent with recent inferior and true posterior myocardial infarction. On the morning of his discharge from the hospital, the patient is medically stable and ready for disc harge home. His blood pressure is 120/78, well controlled. His heart rate is 76 and regular, ranges between 60 and 80 and is irregularly irregular consistent with his permanent atrial fibrillation. H is oxygen saturation is 95% on room air. His discharge medications are to include his home medications which are Pradaxa 150 p.o. twice daily, lisinopril 40 mg p.o. daily, metoprolol succinate 150 p.o. daily, rosuvastatin 5 mg p.o. daily, whic h was added at the time of this hospitalization. The patient will be sent home on so-called dual the rapy as opposed to triple therapy with Pradaxa 150 p.o. twice daily for his nonvalvular atrial fibril lation and also be on Plavix 75 mg daily. The Plavix should be continued for 1 year post PR given e history of stents. The patient will not be continued on aspirin at the time of his discharge becau se of the risk of bleeding from so-called triple therapy. Obviously, there is an additional concern in that the patient is a [employer] orth[employer] and would not receive blood products even if required to s ave his life, so life-threatening bleeding would be of course, a major problem in his particular case . LABORATORY STUDIES: During hospitalization did reveal a peak troponin of 78.4, consistent with myoca rdial infarction and his N terminal proBNP was 3730 at peak consistent with diagnosis of myocardial s train and heart failure. His fasting blood sugar 10/21/2018 was 166, which if repeated as an outpati ent and consistently above 126 would be consistent with the diagnosis of diabetes. The patient shoul d be evaluated and treated for his diabetes and it is possible that the drug, Jardiance may be of mikey efit and prevention of heart failure or acute PR in patients with diabetes, so I would suggest that t hat be the backbone of his diabetic therapy because of its benefits in patients with underlying coron alonzo disease and now an ischemic cardiomyopathy. I believe his echocardiogram should be repeated in 1 2 weeks to ensure that his ejection fraction remains above 35%. If his ejection fraction with negati ve remodeling is less than 35%, he should be considered for an AICD under the care of Dr. Claudio Corea rd and the Cardiology team at [place]. If there are questions or concerns, please contact me at my of fice [phone]. The patient will be discharged on standard risk precautions. I have asked that julissa conway avoid any strenuous activity for the next 4 to 6 weeks and I would like for him to be enrolled in c ardiac rehab at [facility] at [facility], as I think that will be helpful in his convalescence . The patient knows to return promptly to the emergency department at either [facility] or here, which ever 1 is closest if he has recurrence of chest pressure, tightness, shortness of breath, or other cl inical symptoms of concern. Copy requested to: Ignacio Levin /[id number]/MODL
== END 2018-10-22 10:32 | disposition home or self-care (01) | DRG 247 ==
LOC: F2N 10-21 04:16
PROVIDERS: ADMIT Internal Medicine; ATTEND Internal Medicine
PROC: 027035Z Dilation of Coronary Artery, One Artery with Two Drug-eluting Intraluminal Devices, Percutaneous Approach (ICD-10-PCS; principal; 2018-10-21)
DX: I22.2 Subsequent non-ST elevation (NSTEMI) myocardial infarction (principal); E86.9 Volume depletion, unspecified; I10 Essential (primary) hypertension; I48.2 Chronic atrial fibrillation; E78.5 Hyperlipidemia, unspecified; E11.9 Type 2 diabetes mellitus without complications; G47.30 Sleep apnea, unspecified; E66.01 Morbid (severe) obesity due to excess calories; I24.9 Acute ischemic heart disease, unspecified; Z79.01 Long term (current) use of anticoagulants
CPT/HCPCS: 84484-ER; 85520-90; 96374; C1725; C1769; C1874; C1887; C9606; J1644; J2250; J2270; J2405; J3010; J3475; Q9967